=== PATIENT | male | born 1980 | race Caucasian/White ===

== ENCOUNTER 2018-02-25 10:17 | Emergency (ER) | payer SELFPAY ==
[2018-02-25] MEDS ORDERED: Aspirin 81 MG Tab.Chew PO ONE (10:47)
--- NOTE | 2018-02-25 10:51 | EDM.PDOC ---
ED HPI GENERAL MEDICAL PROBLEM - General Chief Complaint: Chest Pain Stated Complaint: CHEST DISCOMFORT/TIGHTNESS Time Seen by Provider: 02/25/18 10:48 Source of Information: Reports: Patient History Limitations: Reports: No Limitations - History of Present Illness INITIAL COMMENTS - FREE TEXT/NARRATIVE: Pt is having a continuous chest pressure on the left chest. He occassionally feels sob. He has no history of heart disease. His family history ids positive for hypertension Onset: Gradual, Other ( several days of chest pressure and discomfort. ) Duration: Hour(s): Associated Symptoms: Reports: Chest Pain, Shortness of Breath, Other (Pt is feeling very anxious. ) Chest Pain Score (Numeric/FACES): 3 - Related Data Allergies Allergy/AdvReac Type Severity Reaction Status Date / Time amoxicillin Allergy Hives Verified 02/25/18 10:26 erythromycin base Allergy Hives Verified 02/25/18 10:26 Home Meds: Home Meds NK [No Known Home Meds] 02/25/18 [History] Past Medical History Respiratory History: Reports: Asthma, Pneumonia, Recurrent Social & Family History - Tobacco Use Smoking Status *Q: Never Smoker - Caffeine Use Caffeine Use: Reports: Coffee - Alcohol Use Number of Drinks Per Day: 3 - Recreational Drug Use Recreational Drug Use: No ED ROS GENERAL - Review of Systems Review Of Systems: See Below Constitutional: Reports: No Symptoms HEENT: Reports: No Symptoms Respiratory: Reports: No Symptoms Cardiovascular: Reports: Other (pt has chest pressure nd some tingling in the left arm. The pain is worse sometimes with exercise. ) Endocrine: Reports: No Symptoms GI/Abdominal: Reports: No Symptoms : Reports: No Symptoms Musculoskeletal: Reports: No Symptoms ED EXAM, GENERAL - Physical Exam Exam: See Below Free Text/Narrative:: Pt arrived with pressure in his left chest. He has some tingling in th left arm/ . Exam Limited By: No Limitations General Appearance: Alert, Anxious, Mild Distress Ears: Normal TMs Nose: Normal Inspection Throat/Mouth: Normal Inspection Head: Atraumatic Neck: Normal Inspection Respiratory/Chest: No Respiratory Distress Cardiovascular: Regular Rate, Rhythm GI/Abdominal: Soft, Non-Tender (Male) Exam: Deferred Rectal (Males) Exam: Deferred Extremities: Normal Inspection Neurological: Alert, Oriented, Normal Cognition Psychiatric: Normal Affect Course - Vital Signs Last Recorded V/S: Last Vital Signs Temp 37.0 C 02/25/18 10:34 Pulse 62 02/25/18 10:34 Resp 11 L 02/25/18 10:34 BP 158/89 H 02/25/18 10:34 Pulse Ox - Orders/Labs/Meds Orders: Active Orders 24 hr Category Date Time Status EKG Documentation Completion [RC] ASDIRECTED Care 02/25/18 10:37 Active Chest 1V Frontal [CR] Stat Exams 02/25/18 10:37 Ordered EKG 12 Lead [EK] Routine Ther 02/25/18 10:37 Ordered Labs: Laboratory Tests 02/25/18 02/25/18 02/25/18 Range/Units 10:45 10:45 10:45 WBC 5.1 (4.5-11.0) K/uL RBC 5.01 (4.30-5.90) M/uL Hgb 14.5 (12.0-15.0) g/dL Hct 42.6 (40.0-54.0) % MCV 85 (80-98) fL MCH 29 (27-31) pg MCHC 34 (32-36) % Plt Count 279 (150-400) K/uL Neut % (Auto) 59 (36-66) % Lymph % (Auto) 32 (24-44) % [place] % (Auto) 9 H (2-6) % Eos % (Auto) 1 L (2-4) % Baso % (Auto) 0 (0-1) % Sodium 140 (140-148) mmol/L Potassium 4.0 (3.6-5.2) mmol/L Chloride 102 (100-108) mmol/L Carbon Dioxide 28 (21-32) mmol/L Anion Gap 9.8 (5.0-14.0) mmol/L BUN 12 (7-18) mg/dL Creatinine 0.9 (0.8-1.3) mg/dL Est Cr Clr Drug Dosing TNP Estimated GFR (MDRD) > 60 (>60) Glucose 95 (74-106) mg/dL Calcium 8.7 (8.5-10.1) mg/dL Total Bilirubin 0.4 (0.2-1.0) mg/dL AST 24 (15-37) U/L ALT 39 (12-78) U/L Alkaline Phosphatase 52 (46-116) U/L Creatine Kinase 166 (39-308) U/L Troponin I < 0.017 (0.000-0.056) ng/mL Total Protein 7.3 (6.4-8.2) g/dL Albumin 4.2 (3.4-5.0) g/dL Globulin 3.1 (2.3-3.5) g/dL Albumin/Globulin Ratio 1.4 (1.2-2.2) Meds: Medications Discontinued Medications Generic Name Dose Route Start Last Admin Trade Name Funmi PRN Reason Stop Dose Admin Aspirin 324 mg 02/25/18 10:47 02/25/18 10:52 Aspirin PO 02/25/18 10:48 324 mg ONETIME ONE Administration - Re-Assessments/Exams Free Text/Narrative Re-Assessment/Exam: 02/25/18 11:52 Pt arrived with a feeling of chest pressure and he has times when he is getting shakey. He lost his dog about 1 week ago and the dog was a very important part of the fsmily. 02/25/18 11:53 Pt has a normal ekg and trop. He seemes anxious and he states his is very depressed. Departure - Departure Time of Disposition: 11:54 Disposition: Home, Self-Care 01 Condition: Fair Clinical Impression: Anxiety, Atypical chest pain Referrals: PCP,None [Primary Care Provider] - Forms: ED Department Discharge Care Plan Goals: schedule a exercise cardilyte in the next 2 days, appt with his regular Dr in next 4-5 dsys, ativan .5 1 tab in the evening and 1 tab at hs for relaxation. - My Orders Last 24 Hours: My Active Orders 02/25/18 10:37 EKG Documentation Completion [RC] ASDIRECTED Chest 1V Frontal [CR] Stat EKG 12 Lead [EK] Routine - Assessment/Plan Last 24 Hours: My Active Orders 02/25/18 10:37 EKG Documentation Completion [RC] ASDIRECTED Chest 1V Frontal [CR] Stat EKG 12 Lead [EK] Routine
--- NOTE | 2018-02-25 13:01 | CR ---
CHEST: Portable CLINICAL HISTORY:Chest pressure COMPARISON:None FINDINGS: Heart size and pulmonary vascularity are normal. No infiltrate effusion or pneumothorax is seen. Impression: No acute cardiopulmonary process.
== END 2018-02-25 12:17 | disposition home or self-care (01) ==
LOC: JP.ED 10:17
DX: F41.9 Anxiety disorder, unspecified (principal); R07.89 Other chest pain; Z88.1 Allergy status to other antibiotic agents
CPT/HCPCS: 36415; 71045; 80053; 82550; 84484; 85025; 93005; 99284; 99285; A9270

== ENCOUNTER 2024-01-07 15:20 | Emergency (ER) | payer OTHER ==
[2024-01-07 15:39] LABS: BASOPHILS ABSOLUTE AUTO 0.03 K/uL (0.00-0.10); BASOPHILS PERCENT AUTO 0.4 % (0.1-1.3); EOSINOPHILS ABSOLUTE AUTO 0.07 K/uL (0.00-0.40); EOSINOPHILS PERCENT AUTO 0.9 % (0.0-5.4); HEMATOCRIT 44.1 % (38.4-49.7); HEMOGLOBIN 14.8 g/dL (12.9-16.9); IMMATURE GRAN ABSOLUTE AUTO 0.03 K/uL (0.00-0.23); IMMATURE GRAN PERCENT AUTO 0.4 % (0.0-0.7); LYMPHOCYTES ABSOLUTE AUTO 2.54 K/uL (0.8-3.3); LYMPHOCYTES PERCENT AUTO 31.1 % (11.4-47.7); MEAN CORPUSCULAR HEMOGLOBIN 28.2 pg (31.6-35.5); MEAN CORPUSCULAR HGB CONC 33.6 g/dL (31.6-35.5); MEAN CORPUSCULAR VOLUME 84.2 fL (81.4-99.0); MONOCYTES ABSOLUTE AUTO 0.69 K/uL (0.20-0.90); MONOCYTES PERCENT AUTO 8.5 % (3.3-12.6); NEUTROPHILS PERCENT AUTO 58.7 % (40.0-78.1); PLATELET COUNT,PLT 296 K/uL (130-375); RED BLOOD CELL COUNT 5.24 M/uL (4.14-5.76); WHITE BLOOD CELL COUNT,WBC 8.2 K/uL (3.2-11.0)
[2024-01-07] MEDS: Ondansetron 4 MG/2 ML SDV IVPUSH ONE (15:40)
[2024-01-07] MEDS: Sodium Chloride 0.9% 1,000 ML IV SCH (15:40)
[2024-01-07 15:51] LABS: A/G RATIO 1.2 (1.2-2.2); ALANINE AMINOTRANSFERASE,ALT 43 U/L (12-78); ALBUMIN 4.8 g/dL (3.4-5.0); ALKALINE PHOSPHATASE 73 U/L (46-116); AMYLASE 59 U/L (25-115); ASPARTATE AMNIOTRANSFERASE,AST 21 U/L (15-37); BILIRUBIN TOTAL 0.3 mg/dL (0.2-1.0); BLOOD UREA NITROGEN,BUN 14 mg/dL (7-18); CALCIUM 9.8 mg/dL (8.5-10.1); CARBON DIOXIDE,CO2 27 mmol/L (21-32); CHLORIDE,CL 99 mmol/L (100-108); CREATININE 0.9 mg/dL (0.8-1.3); EST CRCL DRUG DOSING (CG) 118.56 mL/min; ESTIMATED GFR 110 mL/min (>60); GLUCOSE RANDOM 133 mg/dL (74-106); POTASSIUM,K 3.3 mmol/L (3.6-5.2); PROTEIN TOTAL,TP 8.7 g/dL (6.4-8.2); SODIUM,NA 141 mmol/L (140-148)
[2024-01-07 15:52] LABS: ANION GAP 18.3 mmol/L (5.0-14.0)
[2024-01-07 15:53] LABS: TROPONIN I HIGH SENSITIVITY 8.1 pg/mL (<=60.3)
[2024-01-07 15:54] LABS: C-REACTIVE PROTEIN < 0.50 mg/dL (<0.50)
[2024-01-07] MEDS ORDERED: Sodium Chloride 0.9% 10 ML Syringe FLUSH ONE (16:11)
[2024-01-07 16:29] LABS: CORONAVIRUS COVID-19 NAA NEGATIVE (NEGATIVE); INFLUENZA A NAA NEGATIVE (NEGATIVE); INFLUENZA B NAA NEGATIVE (NEGATIVE); RESPIRATORY SYNCYTIAL VIR NAA NEGATIVE (NEGATIVE)
[2024-01-07] MEDS: Sodium Chloride 0.9% 80 ML IV SCH (16:29)
[2024-01-07] MEDS: Iopamidol 612 MG/ML 100 ML Bottle IV SCH (16:29)
[2024-01-07] MEDS ORDERED: Sodium Chloride 0.9% 1,000 ML IV SCH ×2 (16:45→18:45)
[2024-01-07 17:12] LABS: APPEARANCE,URINE CLEAR (CLEAR); BILIRUBIN,URINE NEGATIVE (NEGATIVE); COLOR,URINE YELLOW (YELLOW); GLUCOSE,URINE NEGATIVE (NEGATIVE); KETONES,URINE NEGATIVE (NEGATIVE); LEUKOCYTE ESTERASE,URINE NEGATIVE (NEGATIVE); NITRITE,URINE NEGATIVE (NEGATIVE); OCCULT BLOOD,URINE NEGATIVE (NEGATIVE); PROTEIN,URINE NEGATIVE (NEGATIVE); UROBILINOGEN,URINE 0.2 EU/dL (0.2-1.0)
[2024-01-07 17:19] LABS: AMORPHOUS SEDIMENT,URINE MANY; AMPHETAMINES SCREEN, URINE NEGATIVE (NEGATIVE); BACTERIA,URINE FEW; BARBITURATE SCREEN,URINE NEGATIVE (NEGATIVE); BENZODIAZEPINES SCREEN,URINE NEGATIVE (NEGATIVE); EPITHELIAL CELLS,URINE RARE; METHADONE SCREEN, URINE NEGATIVE (NEGATIVE); METHAMPHETAMINES SCREEN, URINE NEGATIVE (NEGATIVE); MUCUS,URINE NOT SEEN; OXYCODONE SCREEN,URINE NEGATIVE (NEGATIVE); PROPOXYPHENE SCREEN,URINE NEGATIVE (NEGATIVE); RBC,URINE NOT SEEN (0-5); THC SCREEN,URINE 50 NG/ML PRESUMPTIVE POSITIVE (NEGATIVE); WBC,URINE NOT SEEN (0-5)
[2024-01-07] MEDS: Meclizine 25 MG Tab PO STA (18:51)
== END 2024-01-07 21:12 | disposition home or self-care (01) ==
LOC: JP.ED 15:20
DX: K37 Unspecified appendicitis (principal); E86.0 Dehydration; R00.1 Bradycardia, unspecified; I10 Essential (primary) hypertension; Z88.0 Allergy status to penicillin; Z88.1 Allergy status to other antibiotic agents; Z79.899 Other long term (current) drug therapy
CPT/HCPCS: 0241U; 36415; 74177; 74177-26; 80053; 80305-QW; 81001; 82150; 83690; 84484; 85025; 86140; 93005; 93010; 96361; 96374; 99284-25; 99285; A9270-GY; J2405; J3490; J7030; Q9967